=== PATIENT | female | born 1945 | race Asian ===

== ENCOUNTER → 2017-07-04 | Outpatient (CLI) | payer MEDICARE, BC | LOC: CFH 08:41 | PROVIDERS: ATTEND Licensed Practical Nurse | DX: Z13.820 Encounter for screening for osteoporosis (principal); M85.88 Other specified disorders of bone density and structure, other site; N95.8 Other specified menopausal and perimenopausal disorders | CPT/HCPCS: 77080 ==

== ENCOUNTER 2018-04-15 06:18 | Inpatient (IN) | payer MEDICARE, BC ==
[~2018-04-15] VITALS: Ht 160 cm; Wt 73.1 kg
[~2018-04-15 06:18] MED LIST: ASPI-496 PO; CALC1TAB4 PO; CANA100T PO; CHOL100012 PO; FELO5TAB PO; FENO135C4 PO; GLIM2TAB2 PO; HYDR12.53 PO; IRBE300T16 PO; METF500T17 PO; ROSU40TA PO
[2018-04-15] MEDS ORDERED: BACITRACIN 50,000 UNIT ONE (06:19)
[2018-04-15] MEDS ORDERED: VANCOMYCIN 1,000 MG ONE ×2 (06:19→10:44)
[2018-04-15] MEDS ORDERED: BUPIVACAINE/PF-EPI 0.5% 1:200K ONE (06:19)
[2018-04-15] MEDS ORDERED: THROMBIN 5,000 UNIT VIAL TP ONE (06:19)
[2018-04-15] MEDS ORDERED: LACTATED RINGERS 1,000 ML IV SCH (07:14)
[2018-04-15 07:19] VITALS: BP 137/71
[2018-04-15] MEDS ORDERED: GABAPENTIN 300 MG CAPSULE PO STA (07:38)
[2018-04-15] MEDS ORDERED: ACETAMINOPHEN 500 MG TABLET PO STA (07:38)
[2018-04-15] MEDS ORDERED: MIDAZOLAM 1 MG/ML, 2ML ONE (07:48)
[2018-04-15] MEDS ORDERED: FENTANYL PF 250 MCG/5ML ONE (07:48)
[2018-04-15] MEDS ORDERED: ROCURONIUM 10MG/ML,5ML ONE (07:49)
[2018-04-15] MEDS ORDERED: PROPOFOL 10 MG/ML, 20ML ONE (07:50)
[2018-04-15] MEDS ORDERED: LIDOCAINE-MPF 2% ,5ML ONE (07:50)
[2018-04-15] MEDS ORDERED: DEXAMETHASONE 4 MG/ML, 1ML ONE (08:43)
[2018-04-15] MEDS ORDERED: CEFAZOLIN 1,000 MG ONE (08:43)
[2018-04-15] MEDS ORDERED: VASOPRESSIN 20 UNIT/ML, 1ML ONE (08:43)
[2018-04-15] MEDS ORDERED: PHENYLEPHRINE 10 MG/ML ONE (08:43)
[2018-04-15] MEDS ORDERED: MEPERIDINE/PF 25MG/0.5ML IVPush PRN (10:00)
[2018-04-15] MEDS ORDERED: HYDROmorphone 1 MG/ML, 1ML IV PRN (10:00)
[2018-04-15] MEDS ORDERED: OXYcodone 5 MG/5 ML ORAL.SOL UDC PO PRN (10:00)
[2018-04-15] MEDS ORDERED: LABETALOL 5MG/ML, 20ML IV PRN ×2 (10:00→12:30)
[2018-04-15] MEDS ORDERED: HALOPERIDOL 5 MG/ML IV PRN (10:00)
[2018-04-15] MEDS ORDERED: hydrALAzine 20 MG/ML, 1ML IV PRN (10:00)
[2018-04-15] MEDS ORDERED: DIPHENHYDRAMINE 50 MG/ML, 1ML IVPush PRN ×2 (10:00→12:30)
[2018-04-15] MEDS ORDERED: FENTANYL PF 100 MCG/2ML ONE (10:40)
[2018-04-15] MEDS ORDERED: OXYcodone 5 MG/5 ML ORAL.SOL UDC ONE (10:40)
[2018-04-15] MEDS: FENTANYL PF 100 MCG/2ML IV PRN ×2 (10:44→11:08)
[2018-04-15 11:45] VITALS: BP 112/54
[2018-04-15] MEDS ORDERED: HYDROcodone/APAP 5/325 TABLET PO PRN (12:30)
[2018-04-15] MEDS ORDERED: MAGNESIUM HYDROXIDE 8%, 30ML UDC PO PRN (12:30)
[2018-04-15] MEDS ORDERED: BISACODYL 10 MG SUPP PR PRN (12:30)
[2018-04-15] MEDS ORDERED: DIPHENHYDRAMINE 50 MG/ML, 1ML IM PRN (12:30)
[2018-04-15] MEDS ORDERED: DIPHENHYDRAMINE 50 MG CAPSULE PO PRN (12:30)
[2018-04-15] MEDS ORDERED: CYCLOBENZAPRINE 10 MG TABLET PO PRN (12:30)
[2018-04-15] MEDS ORDERED: morphine SULFATE 10 MG/ML, 1ML IV PRN (12:30)
[2018-04-15] MEDS ORDERED: PROMETHAZINE 25 MG/ML, 1ML IM PRN (12:30)
[2018-04-15] MEDS ORDERED: ONDANSETRON 2MG/ML, 2ML IV PRN (12:30)
[2018-04-15 12:35] VITALS: BP 113/63
[2018-04-15] MEDS: NS + 20MEQ KCL 1,000 ML IV SCH (13:51)
[2018-04-15] MEDS: INSULIN REGULAR 100 UNITS/ML, 3ML VIAL SQ-INSULIN SCH ×2 (16:00→20:57)
[2018-04-15] MEDS: metFORMIN 500 MG TABLET PO SCH (16:15)
[2018-04-15] MEDS: CEFAZOLIN PMX 1GM/50ML 50 ML IVPB SCH (16:15)
[2018-04-15 19:45] VITALS: BP 119/52
[2018-04-15] MEDS: ATORVASTATIN 80 MG TABLET PO SCH (20:56)
[2018-04-16 00:55] VITALS: BP 136/63
[2018-04-16] MEDS: NS + 20MEQ KCL 1,000 ML IV SCH ×3 (01:01→20:55)
[2018-04-16] MEDS: CEFAZOLIN PMX 1GM/50ML 50 ML IVPB SCH (01:01)
[2018-04-16] MEDS: OXYcodone/APAP 5/325MG TABLET PO PRN ×2 (01:08→06:35)
[2018-04-16 04:01] VITALS: BP 124/51
[2018-04-16 05:40] LABS: BASOPHILS # (AUTO) 0.03 x10^3/uL (0-0.1); BASOPHILS % (AUTO) 0 % (0-1); EOSINOPHILS # (AUTO) 0.04 x10^3/uL (0-0.4); EOSINOPHILS % (AUTO) 0 % (1-7); LYMPHOCYTES # (AUTO) 2.07 x10^3/uL (1-3.4); LYMPHOCYTES % (AUTO) 22 % (22-44); MD NO; MEAN CORPUSCULAR HEMOGLOBIN 31.1 pg (27.0-34.8); MEAN CORPUSCULAR HGB CONC 33.6 g/dL (32.4-35.8); MEAN CORPUSCULAR VOLUME 92.5 fL (80-100); MEAN PLATELET VOLUME 6.7 fL (7.4-10.4); MONOCYTES # (AUTO) 0.57 x10^3/uL (0.2-0.8); MONOCYTES % (AUTO) 6 % (2-9); NEUTROPHILS # (AUTO) 6.89 x10^3/uL (1.8-6.8); NEUTROPHILS % (AUTO) 72 % (42-75); PLATELET COUNT 323 x10^3/uL (130-400); RED BLOOD COUNT 3.58 x10^6/uL (3.82-5.3); RED CELL DISTRIBUTION WIDTH 14.1 % (9.6-15.2)
[2018-04-16 05:50] LABS: ANION GAP 10 mmol/L (5-15); CALCIUM 8.1 mg/dL (8.5-10.1); CHLORIDE 108 mmol/L (98-107)
[2018-04-16 05:52] LABS: CREATININE 0.72 mg/dL (0.55-1.02)
[2018-04-16] MEDS ORDERED: ENOXAPARIN 40 MG/0.4 ML SQ SCH (06:00)
[2018-04-16] MEDS: INSULIN REGULAR 100 UNITS/ML, 3ML VIAL SQ-INSULIN SCH ×4 (07:00→20:57)
[2018-04-16 07:54] VITALS: BP 122/58
[2018-04-16] MEDS: [UNRECOGNIZED DRUG - OTHER] HOMEMEDPO SCH (08:11)
[2018-04-16] MEDS: CANAGLIFLOZIN HOMEMEDPO SCH (08:11)
[2018-04-16] MEDS: HYDROCHLOROTHIAZIDE 12.5 MG CAPSULE PO SCH (08:12)
[2018-04-16] MEDS: IRBESARTAN 300 MG TABLET PO SCH (08:12)
[2018-04-16] MEDS: SENNA/DOCUSATE TABLET PO SCH (08:12)
[2018-04-16] MEDS: GLIMEPIRIDE 1 MG TABLET PO SCH (08:12)
[2018-04-16] MEDS: metFORMIN 500 MG TABLET PO SCH ×2 (08:12→16:13)
[2018-04-16] MEDS: FENOFIBRATE 145 MG TABLET PO SCH (08:12)
[2018-04-16] MEDS: FAMOTIDINE 20 MG TABLET PO SCH ×2 (08:27→21:00)
[2018-04-16] MEDS: DEXAMETHASONE 4 MG/ML, 1ML IVPush SCH ×3 (08:27→20:22)
[2018-04-16] MEDS: GABAPENTIN 100 MG CAPSULE PO SCH ×3 (08:36→21:00)
[2018-04-16] MEDS ORDERED: ONDANSETRON ODT 4 MG PO PRN (09:30)
[2018-04-16 13:54] VITALS: BP 148/75
[2018-04-16] MEDS ORDERED: THROMBIN 5,000 UNIT VIAL TP ONE (17:01)
[2018-04-16] MEDS ORDERED: BUPIVACAINE/PF-EPI 0.5% 1:200K ONE (17:01)
[2018-04-16] MEDS ORDERED: BACITRACIN 50,000 UNIT ONE (17:01)
[2018-04-16] MEDS ORDERED: BACITRACIN OINT 500U/GM, 15 GM ONE (17:01)
[2018-04-16] MEDS ORDERED: FENTANYL PF 250 MCG/5ML ONE (17:32)
[2018-04-16] MEDS ORDERED: CEFAZOLIN 1,000 MG ONE (17:48)
[2018-04-16] MEDS ORDERED: ONDANSETRON 2MG/ML, 2ML ONE ×2 (18:03→18:04)
[2018-04-16] MEDS ORDERED: PROPOFOL 10 MG/ML, 20ML ONE (18:03)
[2018-04-16] MEDS ORDERED: ROCURONIUM 10MG/ML,5ML ONE (18:03)
[2018-04-16] MEDS ORDERED: ONDANSETRON 2MG/ML, 2ML IV PRN (18:30)
[2018-04-16] MEDS ORDERED: OXYcodone 5 MG/5 ML ORAL.SOL UDC PO PRN (18:30)
[2018-04-16] MEDS ORDERED: LABETALOL 5MG/ML, 20ML IV PRN (18:30)
[2018-04-16] MEDS ORDERED: hydrALAzine 20 MG/ML, 1ML IV PRN (18:30)
[2018-04-16] MEDS ORDERED: HYDROmorphone 1 MG/ML, 1ML IV PRN (18:30)
[2018-04-16] MEDS ORDERED: HALOPERIDOL 5 MG/ML IV PRN (18:30)
[2018-04-16] MEDS ORDERED: MEPERIDINE/PF 25MG/0.5ML IVPush PRN (18:30)
[2018-04-16] MEDS ORDERED: DIAZEPAM 5 MG/ML, 2ML IVPush PRN (18:30)
[2018-04-16] MEDS ORDERED: HYDROmorphone 2 MG/ML, 1ML ONE (18:34)
[2018-04-16] MEDS ORDERED: FENTANYL PF 100 MCG/2ML ONE (18:34)
[2018-04-16] MEDS ORDERED: OXYcodone 5 MG/5 ML ORAL.SOL UDC ONE (18:35)
[2018-04-16] MEDS: FENTANYL PF 100 MCG/2ML IV PRN ×2 (18:40→19:05)
[2018-04-16 20:32] VITALS: BP 122/57
[2018-04-16] MEDS: ATORVASTATIN 80 MG TABLET PO SCH (21:00)
[2018-04-16] MEDS: POTASSIUM CHLORIDE 20 MEQ in SODIUM CHLORIDE 0.9% 1,000 ML IV SCH (21:30)
[2018-04-16] MEDS: CEFAZOLIN 2,000 MG in SODIUM CHLORIDE 0.9% 50 ML IVPB SCH (22:45)
[2018-04-17] MEDS: OXYcodone/APAP 5/325MG TABLET PO PRN ×4 (00:27→15:35)
[2018-04-17 00:28] VITALS: BP 121/53
[2018-04-17] MEDS: DEXAMETHASONE 4 MG/ML, 1ML IVPush SCH ×4 (02:48→20:49)
[2018-04-17 04:02] VITALS: BP 107/49
[2018-04-17 04:39] LABS: BASOPHILS # (AUTO) 0.08 x10^3/uL (0-0.1); BASOPHILS % (AUTO) 1 % (0-1); EOSINOPHILS % (AUTO) 0 % (1-7); LYMPHOCYTES # (AUTO) 1.26 x10^3/uL (1-3.4); LYMPHOCYTES % (AUTO) 10 % (22-44); MD NO; MEAN CORPUSCULAR HEMOGLOBIN 31.6 pg (27.0-34.8); MEAN CORPUSCULAR VOLUME 93.1 fL (80-100); MEAN PLATELET VOLUME 6.9 fL (7.4-10.4); MONOCYTES # (AUTO) 0.46 x10^3/uL (0.2-0.8); MONOCYTES % (AUTO) 4 % (2-9); NEUTROPHILS # (AUTO) 10.31 x10^3/uL (1.8-6.8); NEUTROPHILS % (AUTO) 85 % (42-75); PLATELET COUNT 315 x10^3/uL (130-400); RED BLOOD COUNT 3.49 x10^6/uL (3.82-5.3); RED CELL DISTRIBUTION WIDTH 13.6 % (9.6-15.2)
[2018-04-17 04:48] LABS: ALBUMIN 2.7 g/dL (3.4-5.0); ANION GAP 11 mmol/L (5-15); CALCIUM 8.3 mg/dL (8.5-10.1); CHLORIDE 109 mmol/L (98-107); CREATININE 0.77 mg/dL (0.55-1.02)
[2018-04-17] MEDS: CEFAZOLIN 2,000 MG in SODIUM CHLORIDE 0.9% 50 ML IVPB SCH (05:53)
[2018-04-17] MEDS: INSULIN REGULAR 100 UNITS/ML, 3ML VIAL SQ-INSULIN SCH ×4 (06:06→21:07)
[2018-04-17 07:08] VITALS: BP 107/63
[2018-04-17] MEDS: POTASSIUM CHLORIDE 20 MEQ in SODIUM CHLORIDE 0.9% 1,000 ML IV SCH ×2 (07:36→17:56)
[2018-04-17] MEDS: GLIMEPIRIDE 1 MG TABLET PO SCH (08:34)
[2018-04-17] MEDS: SENNA/DOCUSATE TABLET PO SCH (08:34)
[2018-04-17] MEDS: FENOFIBRATE 145 MG TABLET PO SCH (08:34)
[2018-04-17] MEDS: GABAPENTIN 100 MG CAPSULE PO SCH ×3 (08:34→20:49)
[2018-04-17] MEDS: metFORMIN 500 MG TABLET PO SCH ×2 (08:35→15:51)
[2018-04-17] MEDS: IRBESARTAN 300 MG TABLET PO SCH (08:35)
[2018-04-17] MEDS: HYDROCHLOROTHIAZIDE 12.5 MG CAPSULE PO SCH (08:35)
[2018-04-17] MEDS: FAMOTIDINE 20 MG TABLET PO SCH ×2 (08:41→20:52)
[2018-04-17] MEDS: CANAGLIFLOZIN HOMEMEDPO SCH (09:00)
[2018-04-17] MEDS: [UNRECOGNIZED DRUG - OTHER] HOMEMEDPO SCH (09:00)
[2018-04-17] MEDS: NS + 20MEQ KCL 1,000 ML IV SCH ×2 (11:01→20:53)
[2018-04-17 12:13] VITALS: BP 108/59
[2018-04-17 19:10] VITALS: BP 102/50
[2018-04-17] MEDS: ATORVASTATIN 80 MG TABLET PO SCH (20:50)
[2018-04-18 00:34] VITALS: BP 113/61
[2018-04-18] MEDS: POTASSIUM CHLORIDE 20 MEQ in SODIUM CHLORIDE 0.9% 1,000 ML IV SCH ×3 (02:14→23:58)
[2018-04-18] MEDS: DEXAMETHASONE 4 MG/ML, 1ML IVPush SCH ×4 (02:14→21:01)
[2018-04-18] MEDS: NS + 20MEQ KCL 1,000 ML IV SCH ×2 (02:15→16:39)
[2018-04-18 07:05] VITALS: BP 137/69
[2018-04-18] MEDS: INSULIN REGULAR 100 UNITS/ML, 3ML VIAL SQ-INSULIN SCH ×4 (08:55→21:39)
[2018-04-18] MEDS: FAMOTIDINE 20 MG TABLET PO SCH ×2 (08:56→20:59)
[2018-04-18] MEDS: IRBESARTAN 300 MG TABLET PO SCH (08:56)
[2018-04-18] MEDS: SENNA/DOCUSATE TABLET PO SCH (08:57)
[2018-04-18] MEDS: metFORMIN 500 MG TABLET PO SCH ×2 (08:57→16:37)
[2018-04-18] MEDS: GLIMEPIRIDE 1 MG TABLET PO SCH (08:57)
[2018-04-18] MEDS: CANAGLIFLOZIN HOMEMEDPO SCH (08:58)
[2018-04-18] MEDS: FENOFIBRATE 145 MG TABLET PO SCH (08:58)
[2018-04-18] MEDS: HYDROCHLOROTHIAZIDE 12.5 MG CAPSULE PO SCH (08:58)
[2018-04-18] MEDS: [UNRECOGNIZED DRUG - OTHER] HOMEMEDPO SCH (08:58)
[2018-04-18] MEDS: GABAPENTIN 100 MG CAPSULE PO SCH ×3 (09:01→21:00)
[2018-04-18 12:53] VITALS: BP 106/53
[2018-04-18 18:41] VITALS: BP 147/79
[2018-04-18] MEDS ORDERED: ROSUVASTATIN CALCIUM 40 MG HOMEMEDPO SCH (21:00)
[2018-04-19 00:10] VITALS: BP 148/69
[2018-04-19] MEDS: DEXAMETHASONE 4 MG/ML, 1ML IVPush SCH ×2 (02:43→09:07)
[2018-04-19] MEDS: NS + 20MEQ KCL 1,000 ML IV SCH ×2 (03:00→09:08)
[2018-04-19] MEDS: OXYcodone/APAP 5/325MG TABLET PO PRN (06:17)
[2018-04-19] MEDS: INSULIN REGULAR 100 UNITS/ML, 3ML VIAL SQ-INSULIN SCH ×2 (07:00→11:00)
[2018-04-19 07:39] VITALS: BP 153/71
[2018-04-19] MEDS: [UNRECOGNIZED DRUG - OTHER] HOMEMEDPO SCH (09:00)
[2018-04-19] MEDS: SENNA/DOCUSATE TABLET PO SCH ×2 (09:00→09:06)
[2018-04-19] MEDS: CANAGLIFLOZIN HOMEMEDPO SCH (09:00)
[2018-04-19] MEDS: metFORMIN 500 MG TABLET PO SCH (09:06)
[2018-04-19] MEDS: GLIMEPIRIDE 1 MG TABLET PO SCH (09:06)
[2018-04-19] MEDS: IRBESARTAN 300 MG TABLET PO SCH (09:06)
[2018-04-19] MEDS: GABAPENTIN 100 MG CAPSULE PO SCH (09:06)
[2018-04-19] MEDS: FENOFIBRATE 145 MG TABLET PO SCH (09:07)
[2018-04-19] MEDS: FAMOTIDINE 20 MG TABLET PO SCH (09:07)
[2018-04-19] MEDS: HYDROCHLOROTHIAZIDE 12.5 MG CAPSULE PO SCH (09:07)
[2018-04-19] MEDS: POTASSIUM CHLORIDE 20 MEQ in SODIUM CHLORIDE 0.9% 1,000 ML IV SCH (09:08)
[2018-04-19] MEDS ORDERED: DIPHENHYDRAMINE 25 MG CAPSULE PO PRN (09:30)
[2018-04-19] MEDS ORDERED: GABA-827 PO (10:43)
[2018-04-19] MEDS ORDERED: SENN1TAB94 PO (10:51)
[2018-04-19] MEDS ORDERED: CYCL5TAB PO (10:53)
[2018-04-19] MEDS ORDERED: OXYC1TAB7 PO (10:54)
[2018-04-19] MEDS ORDERED: GABAPENTIN 300 MG CAPSULE PO SCH (16:00)
[2018-04-19] MEDS ORDERED: DEXAMETHASONE 4 MG/ML, 1ML IV SCH (17:00)
== END 2018-04-19 12:45 | disposition home health service (06) | DRG 515 ==
LOC: OUT 06:18 → 4NOR 11:40 → OUT 11:49 → 4NOR 11:49
PROVIDERS: ADMIT Neurological Surgery; ATTEND Neurological Surgery
PROC: 01NR0ZZ Release Sacral Nerve, Open Approach (ICD-10-PCS; 2018-04-15)
PROC: 01NB0ZZ Release Lumbar Nerve, Open Approach (ICD-10-PCS; principal; 2018-04-15 08:30)
PROC: 00C30ZZ Extirpation of Matter from Intracranial Epidural Space, Open Approach (ICD-10-PCS; 2018-04-16)
DX: M48.07 Spinal stenosis, lumbosacral region (principal); E43 Unspecified severe protein-calorie malnutrition; M51.16 Intervertebral disc disorders with radiculopathy, lumbar region; I10 Essential (primary) hypertension; M48.062 Spinal stenosis, lumbar region with neurogenic claudication; E11.9 Type 2 diabetes mellitus without complications; Z83.3 Family history of diabetes mellitus; Z82.49 Family history of ischemic heart disease and other diseases of the circulatory system; S30.0XXA Contusion of lower back and pelvis, initial encounter
CPT/HCPCS: 36415; 72100; 72148; 80048; 82040; 82962; 85025; C1729; G0378; J0690; J1100; J1650; J1815; J2250; J2405; J2704; J3010; J3370; J3480; J3490; J2370; J7120

== ENCOUNTER → 2019-01-12 | Outpatient (CLI) | payer MEDICARE, BC ==
[~2019-01-12] MED LIST changes: +CYCL5TAB PO; +GABA-827 PO; +HYDR12.517 PO; -HYDR12.53 PO; +OXYC1TAB7 PO; +SENN1TAB94 PO
== END | disposition home or self-care (01) ==
LOC: CFH 10:18
PROVIDERS: ATTEND Physician Assistant
DX: M47.816 Spondylosis without myelopathy or radiculopathy, lumbar region (principal); K80.20 Calculus of gallbladder without cholecystitis without obstruction; M41.86 Other forms of scoliosis, lumbar region
CPT/HCPCS: 72100; 72148